=== PATIENT | male | born 1960 | race Caucasian/White ===

== ENCOUNTER 2017-12-13 17:28 | Emergency (ER) | payer OTHER ==
--- NOTE | 2017-12-13 19:32 | RAD ---
Indication: RIGHT shoulder pain post fall. Comparison: January 20, 2016 and April 25, 2015 chest radiograph. Technique: 4 views RIGHT shoulder Report: Negative for fracture. New depression of the acromion process relative to the distal clavicle compared with the 2015 chest radiograph consistent with high-grade AC joint separation with involvement of the acromioclavicular and coracoclavicular ligaments. Overlying mild soft tissue swelling. Moderate osteophytosis and subchondral sclerosis and cystic change at the acromioclavicular joint. Normal glenohumeral joint alignment. Mild osteophytosis without significant glenohumeral joint space narrowing. 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
--- NOTE | 2017-12-13 19:36 | RAD ---
Indication: RIGHT shoulder and chest pain post fall. Pain with inhalation. Comparison: Shoulder radiograph of the same date and January 20, 2016 chest radiograph. Technique: Dual energy PA chest Report: Grossly nondisplaced RIGHT fifth rib fracture laterally. Potential adjacent fracture of the fourth rib. Negative for pulmonary contusion, pleural effusion, pneumothorax. The heart, pulmonary vasculature, and mediastinal contours are unremarkable. Partially visualized RIGHT AC joint separation with involvement of the coracoclavicular and acromioclavicular ligaments as described in the dedicated RIGHT shoulder report. IMPRESSION: Grossly nondisplaced RIGHT fifth rib fracture laterally. Potential adjacent fracture of the fourth rib. Negative for pulmonary contusion, pleural effusion, pneumothorax.
[2017-12-13] MEDS ORDERED: Ibuprofen TAB* 800 MG PO ONE (19:42)
[2017-12-13] MEDS ORDERED: Acetaminop/Codeine 30 MG TAB* 1 TAB (300 MG/30 MG) PO ONE (19:56)
--- NOTE | 2017-12-13 19:56 | ED ---
Adult Trauma - HPI Summary HPI Summary: Pt was walking dog with Rt arm when dog pulled and jerked pt's shoulder. his feet then went forward and out from under him, causing him to land on his upper back and Rt shoulder pain since. Pain w/ deep breath and pain w/ walking. Denies numbness, tinlgin, weknaess SON and no head/neck injury - History of Current Complaint Chief Complaint: EDBackInjuryPain Stated Complaint: FALL Time Seen by Provider: 12/13/17 18:01 Hx Obtained From: Patient Pain Intensity: 7 - Additional Pertinent History Primary Care Physician: [id number] - Allergy/Home Medications Allergies/Adverse Reactions: Allergies Allergy/AdvReac Type Severity Reaction Status Date / Time Penicillins Allergy Itching Verified 12/13/17 19:44 PMH/Surg Hx/FS Hx/Imm Hx Endocrine/Hematology History: Denies: Hx Diabetes Cardiovascular History: Reports: Other Cardiovascular Problems/Disorders - SLIGHT HEART MURMER Denies: Hx Congestive Heart Failure, Hx Hypertension, Hx Pacemaker/ICD GI History: Reports: Other GI Disorders - pancreatic insufficiency History: Denies: Hx Renal Disease Musculoskeletal History: Reports: Hx Arthritis - bilat knees, Other Musculoskeletal History - bilateral knee arthroscopy. Sensory History: Denies: Hx Hearing Aid Psychiatric History: Denies: Hx Panic Disorder - Cancer History Cancer Type, Location and Year: Pancreatic Tumor removal, final dx nonmetastatic - Surgical History Surgery Procedure, Year, and Place: Whipple (PANCREAS)1993,. cholecystectomy,. partial removal of duodenum 1993. appendectomy as a child (15 yrs of age) Hx Anesthesia Reactions: No Infectious Disease History: No Infectious Disease History: Denies: Traveled Outside the [place] in Last 30 Days - Social History Alcohol Use: Occasionally Alcohol Amount: 2 alcohol drinks/d Substance Use Type: Reports: None Hx Tobacco Use: No Smoking Status (MU): Never Smoked Tobacco Physical Exam Vital Signs On Initial Exam: Initial Vitals Temp Pulse Resp BP Pulse Ox 98.3 F 82 16 145/90 99 12/13/17 17:43 12/13/17 17:43 12/13/17 17:43 12/13/17 17:43 12/13/17 17:43 Musculoskeletal: Positive: Limited @ - space between AC joint, Pain @ Neurological: Positive: Normal Psychiatric: Positive: Normal Diagnostics - Vital Signs Vital Signs Temp Pulse Resp BP Pulse Ox 12/13/17 17:43 98.3 F 82 16 145/90 99 - Laboratory Lab Statement: Any lab studies that have been ordered have been reviewed, and results considered in the medical decision making process. Discharge - Sign-Out/Discharge Documenting (check all that apply): Discharge/Admit/Transfer - Discharge Plan Condition: Stable Disposition: HOME Prescriptions: Ibuprofen TAB* [Motrin TAB* 800 MG] 800 mg PO Q8HR PRN #20 tab PRN Reason: Pain Lidocaine PATCH 5%* [Lidoderm 5% Patch*] 1 patch TRANSDERM DAILY PRN #30 patch PRN Reason: Pain Patient Education Materials: Acromioclavicular Separation (ED), Rib Fracture ( ED) Referrals: Rosendo Suero MD [Primary Care Provider] - Thony Snowden MD [Medical Doctor] - - Billing Disposition and Condition Condition: STABLE Disposition: HOME
[2017-12-13] MEDS ORDERED: Lidocaine PATCH 5%* 1 PATCH TRANSDERM SCH ×2 (20:00)
[2017-12-13 20:20] VITALS: BP 138/91
== END 2017-12-13 20:18 | disposition home or self-care (01) ==
LOC: ED 17:28
DX: S22.31XA Fracture of one rib, right side, initial encounter for closed fracture (principal); S43.101A Unspecified dislocation of right acromioclavicular joint, initial encounter; S43.084A Other dislocation of right shoulder joint, initial encounter; W19.XXXA Unspecified fall, initial encounter; Y93.K1 Activity, walking an animal; Y92.9 Unspecified place or not applicable; Z88.0 Allergy status to penicillin
CPT/HCPCS: 71045; 99283; A9270-GY

== ENCOUNTER 2019-09-19 10:40 | Emergency (ER) | payer OTHER ==
[2019-09-19 10:49] VITALS: BP 153/87
--- NOTE | 2019-09-19 11:47 | UC ---
Hand/Wrist HPI - HPI Summary HPI Summary: slipped and fell on the ice this morning pain center of right wrist - History Of Current Complaint Chief Complaint: UCLowerExtremity Stated Complaint: WRIST INJURY Time Seen by Provider: 09/19/19 11:15 Hx Obtained From: Patient ?: No Mechanism Of Injury: [place] Onset/Duration: Sudden Onset, Lasting Hours Pain Intensity: 7 Pain Scale Used: 0-10 Numeric Character Of Pain: Aching, Throbbing Aggravating Factor(s): Movement Alleviating Factor(s): Rest Associated Signs And Symptoms: Positive: Negative Related History: Dominant Hand Right - Allergies/Home Medications Allergies/Adverse Reactions: Allergies Allergy/AdvReac Type Severity Reaction Status Date / Time Penicillins Allergy Itching Verified 03/24/19 13:26 Home Medications: Home Medications Aspirin 81 mg CHEW TAB* [Aspirin Low Dose TAB*] 81 mg PO DAILY 02/24/15 [ History Confirmed 09/19/19] Multivitamins/Minerals TAB* [Thera M Plus TAB*] 1 tab PO DAILY 02/24/15 [ History Confirmed 09/19/19] [place]-3/Dha/Epa/Fish Oil [Fish Oil] 1,000 mg PO DAILY 02/24/15 [History Confirmed 09/19/19] Ursodiol CAP* [Actigall CAP*] 300 mg PO BID 02/24/15 [History Confirmed 09/19/19 ] Lipase/Protease/Amylase [Zenpep] 1 cap PO DAILY 02/25/15 [History Confirmed ] Temazepam CAP* [Restoril CAP*] 30 mg PO BEDTIME PRN 03/24/19 [History Confirmed 09/19/19] Metoprolol Tartrate TAB* [Lopressor TAB*] 50 mg PO DAILY 08/19/19 [History Confirmed 09/19/19] Omeprazole 1 tab PO DAILY 09/19/19 [History Confirmed 09/19/19] lisinopriL [Lisinopril] 1 tab PO DAILY 09/19/19 [History Confirmed 09/19/19] PMH/Surg Hx/FS Hx/Imm Hx Previously Healthy: No Cardiovascular History: Hypertension GI/ History: Gastroesophageal Reflux Other History Of: Negative For: Anticoagulant Therapy - Surgical History Surgical History: Yes Surgery Procedure, Year, and Place: Whipple (PANCRE[facility])1993,. cholecystectomy. partial removal of duodenum 1993. appendectomy (15 yrs of age). bilat TKA - Social History Alcohol Use: Weekly Alcohol Amount: 5-10 drinks per week Substance Use Type: None Smoking Status (MU): Never Smoked Tobacco - Immunization History Most Recent Influenza Vaccination: 2014 Most Recent Tetanus Shot: up to date Most Recent Pneumonia Vaccination: never Review of Systems All Other Systems Reviewed And Are Negative: Yes Constitutional: Positive: Negative Skin: Positive: Negative Eyes: Positive: Negative ENT: Positive: Epistaxis Respiratory: Positive: Negative Cardiovascular: Positive: Negative Gastrointestinal: Positive: Negative Genitourinary: Positive: Negative Motor: Positive: Decreased ROM - right wrist Neurovascular: Positive: Negative Musculoskeletal: Positive: Arthralgia - right wrist Neurological/Mental Status: Positive: Negative Psychological: Positive: Negative Is Patient Immunocompromised?: No Physical Exam Triage Information Reviewed: Yes Appearance: Well-Appearing, No Pain Distress, Well-Nourished Vital Signs: Initial Vital Signs Temp 98.3 F 09/19/19 10:47 Pulse 74 09/19/19 10:47 Resp 14 09/19/19 10:47 BP 153/87 09/19/19 10:47 Pulse Ox 100 09/19/19 10:47 Vital Signs Reviewed: Yes Eye Exam: Normal Eyes: Positive: Conjunctiva Clear ENT Exam: Normal ENT: Positive: Normal ENT inspection, Hearing grossly normal. Negative: Trismus , Muffled voice, Hoarse voice Dental Exam: Normal Neck exam: Normal Neck: Positive: Supple, Nontender, No Lymphadenopathy Respiratory Exam: Normal Respiratory: Positive: Chest non-tender, No respiratory distress, No accessory muscle use Cardiovascular Exam: Normal Cardiovascular: Positive: RRR, Pulses Normal, Brisk Capillary Refill Musculoskeletal Exam: Normal Musculoskeletal: Positive: Strength Intact, ROM Intact, No Edema Neurological: Positive: Alert, Muscle Tone Normal Psychological Exam: Normal Skin Exam: Normal Diagnostics - Radiology No standard instances Radiology Interpretation Completed By: Radiologist - possible non displaced lunate fracture right wrist Hand/Wrist Course/Dx - Course Course Of Treatment: suman, cock up splint, sling, ibuprofen follow with Dr. Leija this week - Differential Dx/Diagnosis Provider Diagnosis: Fx lunate, wrist-closed, Hypertension Discharge ED - Sign-Out/Discharge Documenting (check all that apply): Patient Departure All imaging exams completed and their final reports reviewed: Yes - Discharge Plan Condition: Stable Disposition: HOME Patient Education Materials: Wrist Fracture in Adults (ED), Hypertension (ED), R.I.C.E. Treatment (ED) Referrals: Holyl Rodgers MD [Primary Care Provider] - 2 Weeks Marla Leija MD [Medical Doctor] - 2 Days - Billing Disposition and Condition Condition: STABLE Disposition: Home
== END 2019-09-19 12:08 | disposition home or self-care (01) ==
LOC: UCEAST 10:40
DX: S62.101A Fracture of unspecified carpal bone, right wrist, initial encounter for closed fracture (principal); I10 Essential (primary) hypertension; K21.9 Gastro-esophageal reflux disease without esophagitis; Z79.899 Other long term (current) drug therapy; Z88.0 Allergy status to penicillin; Z79.82 Long term (current) use of aspirin; W00.0XXA Fall on same level due to ice and snow, initial encounter; Y92.9 Unspecified place or not applicable
CPT/HCPCS: 99213; G0463